=== PATIENT | male | born 1990 | race Caucasian/White ===

== ENCOUNTER 2018-10-24 16:58 | Emergency (ER) | payer OTHER ==
[~2018-10-24] VITALS: Ht 193 cm; Wt 68.0 kg
[2018-10-24 17:01] VITALS: BP 112/69
--- NOTE | 2018-10-24 17:05 | NUR ---
PT TO WAIT IN ER LOBBY. VSS. BLEEDING CONTROLLED.
--- NOTE | 2018-10-24 17:12 | NUR ---
PT TO ER BED 4
--- NOTE | 2018-10-24 17:16 | NUR ---
PT PRESENTS TO ED WITH C/O LACERATION TO RIGHT 5TH DIGIT AFTER BREAKING GLASS CUP APPROX 2 HOURS AGO. NO ACTIVE BLEEDING AT THIS TIME. LAST TDAP UNKNOWN. PAIN 07/08. +ROM
[2018-10-24] MEDS ORDERED: LIDOCAINE 1% 500 MG/50 ML VIAL INJ SCH (17:45)
[2018-10-24] MEDS ORDERED: LIDOCAINE MPF 1% - 5 mL VIAL 5 ML ONE (18:08)
--- NOTE | 2018-10-24 18:47 | NUR ---
Dr. Shaw applying sutures a this time using sterile technique.
[2018-10-24 19:20] VITALS: BP 119/72
--- NOTE | 2018-10-24 19:20 | NUR ---
Patient discharged with v/s stable. Written and verbal after care instructions given and explained. Patient verbalized understanding. Ambulatory with steady gait. All questions addressed prior to discharge. Advised to follow up with PMD.
== END 2018-10-24 19:20 | disposition home or self-care (01) ==
LOC: MED 16:58
DX: S61.216A Laceration without foreign body of right little finger without damage to nail, initial encounter (principal); W25.XXXA Contact with sharp glass, initial encounter; Y93.G1 Activity, food preparation and clean up; Y92.090 Kitchen in other non-institutional residence as the place of occurrence of the external cause; Y99.8 Other external cause status
CPT/HCPCS: 12001; 90471; 90715; 99283; J2001